=== PATIENT | male | born 1955 | race Caucasian/White ===

== ENCOUNTER 2024-03-14 15:56 | Emergency (ER) | payer OTHER ==
--- NOTE | 2024-03-14 16:35 | ED ---
Fall HPI - General Source: patient, RN notes reviewed Mode of arrival: ambulatory Limitations: no limitations <Erlin Thorne - Last Filed: 03/14/24 16:34> <Margarette Lorenzo - Last Filed: 03/14/24 19:49> - General Stated Complaint: Facial laceration Time Seen by Provider: 03/14/24 16:34 - History of Present Illness Initial Comments: Quick note: 68-year-old male presented to ER with a chief complaint of facial laceration. Patient states that he was at work and accidentally tripped falling landing on his chin. He denies loss of consciousness or blood thinner use. He denies any dizziness, lightheadedness, chest pain or shortness of breath prior to fall. Tetanus status unknown. Incident occurred around 3:30 PM. No other injuries. (Erlin Thorne) This is a 68-year-old male presents emergency department chief complaint of a laceration to his right cheek. Patient states that he was working this afternoon on a beam when he accidentally slipped falling on a controlled panel where he had his face. He denies headaches, loss of consciousness, blurry vision, double vision. Denies use of blood thinners. Is unaware when his last tetanus vaccine was. (Margarette Lorenzo) - Related Data Allergies Allergy/AdvReac Type Severity Reaction Status Date / Time No Known Allergies Allergy Verified 03/14/24 16:58 Review of Systems ROS Other: All systems not noted in ROS Statement are negative. <Erlin Thorne - Last Filed: 03/14/24 16:34> ROS Other: All systems not noted in ROS Statement are negative. <Margarette Lorenzo - Last Filed: 03/14/24 19:49> ROS Statement: Those systems with pertinent positive or pertinent negative responses have been documented in the HPI. General Exam <Erlin Thorne - Last Filed: 03/14/24 16:34> General appearance: alert, in no apparent distress Head exam: Present: atraumatic, normocephalic, normal inspection Eye exam: Present: normal appearance, PERRL, EOMI. Absent: scleral icterus, conjunctival injection, periorbital swelling ENT exam: Present: normal exam, mucous membranes moist Neck exam: Present: normal inspection. Absent: tenderness, meningismus, lymphadenopathy Respiratory exam: Present: normal lung sounds bilaterally. Absent: respiratory distress, wheezes, rales, rhonchi, stridor Cardiovascular Exam: Present: regular rate, normal rhythm, normal heart sounds. Absent: systolic murmur, diastolic murmur, rubs, gallop, clicks GI/Abdominal exam: Present: soft, normal bowel sounds. Absent: distended, tenderness, guarding, rebound, rigid Extremities exam: Present: normal inspection, full ROM, normal capillary refill. Absent: tenderness, pedal edema, joint swelling, calf tenderness Back exam: Present: normal inspection Neurological exam: Present: alert, oriented X3, CN II-XII intact Psychiatric exam: Present: normal affect, normal mood Skin exam: Present: warm, dry, intact, normal color. Absent: rash Expanded Type of lesion: Present: laceration (4 cm laceration on the right distal cheek over the mandible.) <Margarette Lorenzo - Last Filed: 03/14/24 19:49> - General Exam Comments Initial Comments: Visual Physical Exam Vital signs reviewed General: Well-appearing, nontoxic, no acute distress. Head: Normocephalic, atraumatic Eyes: PERRLA, EOMI ENT: Airway patent Chest: Nonlabored breathing Skin: No visual rash, normal skin tone, laceration to left cheek. No active bleeding. Neuro: Alert and oriented 3 Musculoskeletal: No gross abnormalities (Erlin Thorne) Course Vital Signs 03/14/24 03/14/24 16:55 19:20 Temperature 98.4 F 98.1 F Pulse Rate 79 83 Respiratory 18 18 Rate Blood Pressure 151/106 145/91 O2 Sat by Pulse 97 98 Oximetry Procedures - Laceration Laceration #1 Consent Obtained: verbal consent Indication: laceration Site: face Size (cm): 4 Description: linear Depth: simple, single layer Anesthetic Used: lidocaine 1% Anesthesia Technique: local infiltration Pre-repair: wound explored Type of Sutures: nylon Size of Sutures: 6-0 Number of Sutures: 8 Technique: simple, interrupted Patient Tolerated Procedure: well, no complications <Margarette Lorenzo - Last Filed: 03/14/24 19:49> Medical Decision Making <Erlin Thorne - Last Filed: 03/14/24 16:34> <Margarette Lorenzo - Last Filed: 03/14/24 19:49> - Medical Decision Making I performed the quick note portion of this chart. Electronically signed by Erlin Thorne PA-C (Erlin Thorne) Was pt. sent in by a medical professional or institution ([facility], EDI PROGRAMMER ANALYST, urgent care, hospital, or long-term...) When possible be specific @ -No Did you speak to anyone other than the patient for history (EMS, parent, family, police, friend...)? What history was obtained from this source @ -No Did you review nursing and triage notes (agree or disagree)? Why? @ -I reviewed and agree with nursing and triage notes Were old charts reviewed (outside hosp., previous admission, EMS record, old EKG, old radiological studies, urgent care reports/EKG's, long-term records)? Report findings @ -No old charts were reviewed Differential Diagnosis (chest pain, altered mental status, abdominal pain women, abdominal pain men, vaginal bleeding, weakness, fever, dyspnea, syncope, headache, dizziness, GI bleed, back pain, seizure, CVA, palpatations, mental health, musculoskeletal)? @ -laceration EKG interpreted by me (3pts min.). @ -None X-rays interpreted by me (1pt min.). @ -None done CT interpreted by me (1pt min.). @ -None done U/S interpreted by me (1pt. min.). @ -None done What testing was considered but not performed or refused? (CT, X-rays, U/S, labs)? Why? @ -None What meds were considered but not given or refused? Why? @ -None Did you discuss the management of the patient with other professionals (professionals i.e. [facility], EDI PROGRAMMER ANALYST, lab, RT, psych nurse, social work coordinator, forensic science technician, teacher, asset protection officer, egg caser)? Give summary @ -No Was smoking cessation discussed for >3mins.? @ -No Was critical care preformed (if so, how long)? @ -No Were there social determinants of health that impacted care today? How? (Homelessness, low income, unemployed, alcoholism, drug addiction, transportation, low edu. Level, literacy, decrease access to med. care, alf, rehab)? @ -No Was there de-escalation of care discussed even if they declined (Discuss DNR or withdrawal of care, Hospice)? DNR status @ -No What co-morbidities impacted this encounter? (DM, HTN, Smoking, COPD, CAD, Cancer, CVA, ARF, Chemo, Hep., AIDS, mental health diagnosis, sleep apnea, morbid obesity)? @ -None Was patient admitted / discharged? Hospital course, mention meds given and route, prescriptions, significant lab abnormalities, going to OR and other pertinent info. @ -C8-year-old male with face laceration. Wound was thoroughly inspected and irrigated with sterile water. Percent lidocaine used for anesthetic. 8 simple interrupted sutures placed with 6-0 nylon. Patient was given tetanus vaccine. All questions answered at bedside. Strict return parameters discussed. Recommend patient follows with his primary care provider reports the emergency department in 5 days for suture removal. Case discussed with Dr. Olea Undiagnosed new problem with uncertain prognosis? @ -No Drug Therapy requiring intensive monitoring for toxicity (Heparin, Nitro, Insulin, Cardizem)? @ -No Were any procedures done? @ -Irrigation, laceration repair with simple interrupted sutures using 6-0 nylon. Diagnosis/symptom? @ -Laceration Acute, or Chronic, or Acute on Chronic? @ -Acute Uncomplicated (without systemic symptoms) or Complicated (systemic symptoms)? @ -Uncomplicated Side effects of treatment? @ -No Exacerbation, Progression, or Severe Exacerbation? @ -No Poses a threat to life or bodily function? How? (Chest pain, USA, [place], pneumonia, PE, COPD, DKA, ARF, appy, cholecystitis, CVA, Diverticulitis, Homicidal, Suicidal, threat to staff... and all critical care pts) @ -No (Margarette Lorenzo) Disposition <Erlin Thorne - Last Filed: 03/14/24 16:34> Is patient prescribed a controlled substance at d/c from ED?: No Time of Disposition: 18:53 <Margarette Lorenzo - Last Filed: 03/14/24 19:49> Clinical Impression: Laceration Narrative: Please return to the emergency department if symptoms worsen to improve. Return to the emergency department or report your primary care provider in 5 days for suture removal. (Margarette Lorenzo) Disposition: HOME SELF-CARE Condition: Good Instructions (If sedation given, give patient instructions): Care For Your Stitches (ED) Referrals: None,Stated [Primary Care Provider] - 1-2 days
[2024-03-14 17:05] VITALS: RESP 18
[2024-03-14] MEDS: DIPH,PERTUS(ACELL)TETVAC-LF 0.5 ML VIAL IM ONE (17:54)
[2024-03-14] MEDS: LIDOCAINE 1% INJ 10MG/ML (20 ML MDV) SQ ONE (17:54)
[2024-03-14 19:28] VITALS: BP 145/91; PULSE 83; TEMP 98.1
== END 2024-03-14 19:20 | disposition home or self-care (01) ==
LOC: EC 15:56
DX: S01.81XA Laceration without foreign body of other part of head, initial encounter (principal); Z23 Encounter for immunization; W01.0XXA Fall on same level from slipping, tripping and stumbling without subsequent striking against object, initial encounter
CPT/HCPCS: 90715; 99283; 90471; 12013; J2001